=== PATIENT | female | born 1955 | race Asian ===

== ENCOUNTER 2017-12-17 09:30 | Outpatient (CLI) | payer BC ==
[2017-12-17 10:18] LABS: Hemoglobin 14.9 g/dL (12.0-16.0); Mean Corpuscular HGB CONC 33.5 g/dL (32.0-36.0); Mean Corpuscular Hemoglobin 31.2 pg (27.0-31.0); Mean Corpuscular Volume 93.2 fl (81.0-99.0); Mean Platelet Volume 6.2 fL (7.4-10.4); Platelet Count 258 thou/uL (130-400); RBC Distribution Width 11.8 % (11.5-14.5); Red Blood Cell (RBC) Count 4.77 mill/uL (4.20-5.40); White Blood Cell (WBC) Count 4.7 thou/uL (4.8-10.8)
[2017-12-17 10:20] LABS: Prothrombin Time 12.7 SEC (12.0-14.7)
[2017-12-17 10:39] LABS: Anion Gap 12 mmol/L (10-20); BUN (Urea Nitrogen) 18 mg/dL (9.8-20.1); Calc. Creatinine Clearance 0 mL/min (70-130); Calcium 9.8 mg/dL (7.8-10.44); Carbon Dioxide 28 mmol/L (23-31); Chloride 104 mmol/L (98-107); Estimated GFR-MDRD 64; Glucose 101 mg/dL (80-115); Potassium 5.3 mmol/L (3.5-5.1); Sodium 139 mmol/L (136-145)
--- NOTE | 2017-12-17 13:29 | EKG ---
Test Reason : Blood Pressure : / mmHG Vent. Rate : 071 BPM Atrial Rate : 071 BPM P-R Int : 168 ms QRS Dur : 084 ms QT Int : 430 ms P-R-T Axes : 063 059 064 degrees QTc Int : 467 ms Sinus rhythm with Premature supraventricular complexes Otherwise normal ECG Borderline ECG No previous ECGs available Confirmed by BEVERLY KABA ([id number]) on 12/17/2017 1:29:31 PM Referred By: HIEN Confirmed By:BEVERLY KABA
== END 2017-12-17 09:31 | disposition home or self-care (01) ==
LOC: LABBT 09:30
PROVIDERS: ATTEND Internal Medicine Cardiovascular Disease
DX: Z01.818 Encounter for other preprocedural examination (principal); I34.0 Nonrheumatic mitral (valve) insufficiency
CPT/HCPCS: 80048; 85027; 85610; 93005; 93010

== ENCOUNTER 2017-12-19 07:47 | Day surgery (SDC) | payer BC ==
[2017-12-17 09:35] VITALS: BMI 22.3
[2017-12-19] MEDS ORDERED: Ketamine 50 MG/ML VIAL ONE (09:34)
[2017-12-19] MEDS ORDERED: PROPOFOL 200 MG/20 ML VIAL ONE (13:42)
--- NOTE | 2017-12-19 20:13 | ECHO ---
DATE OF SERVICE: 12/19/2017. PREPROCEDURE DIAGNOSIS: Mitral valve prolapse. The patient is a pleasant 62-year-old female who comes to the hospital for a planned transesoph ageal echo to evaluate her level of MR and mitral valve prolapse. The Anesthesiology department provided with sedation for the patient. Please see their notes for det ails. After adequate sedation was achieved, the transesophageal probe was inserted into the mouth and into the esophagus without issues. Multiplanar views were then obtained. Left ventricle appears to be normal size with normal wall thickness. Systolic function is normal wit h EF estimated at 55-60% with no regional wall motion abnormalities. Left atrium is mildly dilated, left atrial appendage is a large single lobe appendage with no mass or thrombus. Right atria is mildly dilated. Right ventricle is normal size with normal systolic function. The aortic valve is structurally normal with three cusps, no stenosis. There mild to moderate aortic valve insufficiency. Aortic root is dilated measured at 3.9 cm at the sinuses. Mitral valve has moderate mitral valve prolapse of the posterior leaflet with moderate to severe amou nt of mitral regurgitant jet with Coanda effect anteriorly directed jet. Tricuspid valve structurally normal. There is mild TR, no stenosis. Pulmonary valve structurally normal. There is no stenosis or regurgitation. Descending thoracic aorta has mild atherosclerotic disease, grade I/V. CONCLUSIONS: 1. Normal systolic function, EF of 55-60%. 2. Left atrial enlargement. 3. Mild TR. 4. Dilated aortic root. Suggest CT angio of the chest for further evaluation of this. 5. Tricuspid aortic valve with mild to moderate aortic valve insufficiency. 6. Mitral valve prolapse of the posterior leaflet is moderate with anteriorly directed jet of MR, wh ich is likely moderate to severe range 7. No evidence of intracardiac shunt by agitated saline study.
== END 2017-12-19 11:29 | disposition home or self-care (01) ==
LOC: CCL 07:47
PROVIDERS: ATTEND Internal Medicine Cardiovascular Disease
DX: I08.1 Rheumatic disorders of both mitral and tricuspid valves (principal); I77.819 Aortic ectasia, unspecified site; Z88.2 Allergy status to sulfonamides; Z79.82 Long term (current) use of aspirin; Z79.899 Other long term (current) drug therapy
CPT/HCPCS: 93312; J2704

== ENCOUNTER 2018-01-23 07:32 | Outpatient (CLI) | payer BC ==
[2018-01-23] MEDS ORDERED: ISOVUE-370 76%-LOCM 1 ML ONE (13:06)
== END 2018-01-23 07:33 | disposition home or self-care (01) ==
LOC: BICCT 07:32
PROVIDERS: ATTEND Internal Medicine Cardiovascular Disease
DX: I71.2 Thoracic aortic aneurysm, without rupture (principal); I34.1 Nonrheumatic mitral (valve) prolapse; I35.1 Nonrheumatic aortic (valve) insufficiency; K44.9 Diaphragmatic hernia without obstruction or gangrene
CPT/HCPCS: 71275; 82565

== ENCOUNTER 2018-02-18 10:50 | Outpatient (CLI) | payer BC | END 2018-02-18 10:51 | disposition home or self-care (01) | LOC: BICMAMMO 10:50 | PROVIDERS: ATTEND Obstetrics & Gynecology | DX: Z12.31 Encounter for screening mammogram for malignant neoplasm of breast (principal) | CPT/HCPCS: 77063; 77067 ==

== ENCOUNTER 2018-11-19 11:06 | Outpatient (CLI) | payer BC ==
--- NOTE | 2018-11-19 11:35 | ULT ---
US Thyroid STANDARD: 11/19/2018 12:00 AM CLINICAL INDICATION: Thyroid nodules. COMPARISON: None. FINDINGS: Right and left thyroid lobes are normal in size and echotexture. The right thyroid lobe measures 4.8 and the left thyroid lobe measures 5.0. A small cyst is seen in the left thyroid lobe. There is a solid nodule measuring 5 mm in greatest dim ension in the right thyroid lobe. This is wider than tall, hypoechoic, and does not contain suspicious calcifications. No cervical lymphadenopathy is noted. IMPRESSION: Tiny right thyroid nodule. TIRADS category 4 Given the small size of the nodule, no further follow-up or biopsy is recommended.
== END 2018-11-19 11:07 | disposition home or self-care (01) ==
LOC: BICULT 11:06
PROVIDERS: ATTEND Internal Medicine Cardiovascular Disease
DX: E04.1 Nontoxic single thyroid nodule (principal)
CPT/HCPCS: 76536

== ENCOUNTER 2018-11-20 10:07 | Day surgery (SDC) | payer BC ==
[2018-11-19 13:35] VITALS: BMI 22.8
[2018-11-20 11:07] LABS: #Eosinphils 0.1 thou/uL (0.0-0.7); #Lymphocytes 1.9 thou/uL (1.20-3.40); #Monocytes 0.4 thou/uL (0.11-0.59); #Neutrophils 2.9 thou/uL (1.40-6.50); %Basophils 0.9 % (0.0-1.0); %Eosinophils 1.6 % (0.0-10.0); %Lymphocytes 36.2 % (21.0-51.0); %Monocytes 6.9 % (0.0-10.0); %Neutrophils 54.4 % (42.0-75.0); Hemoglobin 14.2 g/dL (12.0-16.0); Mean Corpuscular Hemoglobin 31.4 pg (27.0-31.0); Mean Corpuscular Volume 92.3 fL (78.0-98.0); Mean Platelet Volume 6.2 fL (7.4-10.4); Platelet Count 308 thou/uL (130-400); RBC Distribution Width 12.2 % (11.5-14.5); Red Blood Cell (RBC) Count 4.51 mill/uL (4.20-5.40); White Blood Cell (WBC) Count 5.3 thou/uL (4.8-10.8)
[2018-11-20 11:13] LABS: INR-International Normal Ratio 1.9
[2018-11-20 11:14] LABS: PTT 40.8 SEC (22.9-36.1)
[2018-11-20 11:25] LABS: Anion Gap 12 mmol/L (10-20); BUN (Urea Nitrogen) 17 mg/dL (9.8-20.1); Calc. Creatinine Clearance 57 mL/min (70-130); Carbon Dioxide 28 mmol/L (23-31); Chloride 107 mmol/L (98-107); Estimated GFR-MDRD 61; Glucose 91 mg/dL (80-115); Potassium 4.2 mmol/L (3.5-5.1); Sodium 143 mmol/L (136-145)
[2018-11-20] MEDS ORDERED: PROPOFOL 20 ML ONE (11:54)
[2018-11-20] MEDS ORDERED: PROPOFOL 200 MG/20 ML VIAL ONE (16:48)
--- NOTE | 2018-11-21 07:03 | EKG ---
Test Reason : PREOP Blood Pressure : / mmHG Vent. Rate : 056 BPM Atrial Rate : 056 BPM P-R Int : 198 ms QRS Dur : 086 ms QT Int : 452 ms P-R-T Axes : 031 014 037 degrees QTc Int : 436 ms Sinus bradycardia Otherwise normal ECG Confirmed by DR. Sherry CUMMINGS ([id number]) on 11/21/2018 7:03:41 AM Referred By: HIEN Confirmed By:DR. Sherry CUMMINGS
== END 2018-11-20 13:31 | disposition home or self-care (01) ==
LOC: CCL 10:07
PROVIDERS: ATTEND Internal Medicine Cardiovascular Disease
DX: I48.91 Unspecified atrial fibrillation (principal); I34.0 Nonrheumatic mitral (valve) insufficiency; I34.1 Nonrheumatic mitral (valve) prolapse; I10 Essential (primary) hypertension; R00.1 Bradycardia, unspecified; Z88.2 Allergy status to sulfonamides; Z79.01 Long term (current) use of anticoagulants; Z79.82 Long term (current) use of aspirin; Z79.899 Other long term (current) drug therapy
CPT/HCPCS: 80048; 85025; 85610; 85730; 93005; 93010; 93312; J2704

== ENCOUNTER 2018-11-28 10:35 | Outpatient (CLI) | payer BC ==
--- NOTE | 2018-11-28 11:28 | CT ---
CT arteriogram chest with IV contrast and 3-D MIP imaging HISTORY: Mitral regurgitation. COMPARISON: 01/23/2018. FINDINGS: No confluent airspace consolidation, parenchymal mass, mediastinal adenopathy, or pleural f luid. Mild atelectasis at the dependent portion of the lung bases is stable. Bovine origin of the vessels at the aortic arch is again demonstrated. The descending aorta is 4.0 cm reduced AP diameter, stable. Descending thoracic aorta is unremarkable. No pericardial fluid is evident. Mild arterial calcification. Small hiatal hernia. The oval 1.5 cm low-density lesion involving the lateral limb of the left adrena l gland is now better visualized. It appears stable and likely represents an adrenal adenoma. IMPRESSION: The descending thoracic aorta remains upper limits of normal in caliber. Stable CT arteri ogram appearance of the chest.
== END 2018-11-28 10:36 | disposition home or self-care (01) ==
LOC: BICCT 10:35
PROVIDERS: ATTEND Internal Medicine Cardiovascular Disease
DX: I34.0 Nonrheumatic mitral (valve) insufficiency (principal)
CPT/HCPCS: 71275

== ENCOUNTER 2019-02-06 09:30 | Outpatient (CLI) | payer BC ==
--- NOTE | 2019-02-06 09:56 | RAD ---
TWO VIEWS CHEST: Comparison: None. History: Pleural effusion. FINDINGS: Two views of the chest shows a normal sized cardiomediastinal silhouette. The patient is status post sternotomy for cardiac valve repair. There is a small left pleural effusion. IMPRESSION: Small left pleural effusion. POS: [facility]PC
== END 2019-02-06 09:31 | disposition home or self-care (01) ==
LOC: BICRAD 09:30
PROVIDERS: ATTEND Internal Medicine Cardiovascular Disease
DX: J90 Pleural effusion, not elsewhere classified (principal)
CPT/HCPCS: 36415; 71046; 85610

== ENCOUNTER 2020-05-11 08:20 | Outpatient (CLI) | payer BC ==
--- NOTE | 2020-05-11 09:16 | RAD ---
2 view chest: [05/11/2020] Comparison:02/06/2019 HISTORY: Heart surgery one year ago, pleural effusion FINDINGS: Prior examination demonstrated blunting of the costophrenic angle on the left suggesting a small left pleural effusion. No significant pleural fluid is appreciated on this examination. Midline sternotomy wires are present. The patient appears status post multifocal cardiac valvuloplast y. Multiple mediastinal clips are again seen. No pneumothorax or pleural fluid is seen and there is no focal consolidation or alveolar edema. Disconnected epicardial pacing leads are present. IMPRESSION: No focal consolidation or alveolar edema. Stable postoperative changes as detailed above.
== END 2020-05-11 08:21 | disposition home or self-care (01) ==
LOC: BICRAD 08:20
PROVIDERS: ATTEND Internal Medicine Cardiovascular Disease
DX: J90 Pleural effusion, not elsewhere classified (principal); Z98.890 Other specified postprocedural states
CPT/HCPCS: 71046

== ENCOUNTER 2021-01-02 11:23 | Outpatient (CLI) | payer BC ==
[2021-01-02 13:02] LABS: #Eosinphils 0.1 10x3/uL (0.0-0.5); #Monocytes 0.5 10x3/uL (0.0-1.1); #Neutrophils 3.2 10x3/uL (1.5-8.4); %Basophils 0.7 % (0.0-2.0); %Eosinophils 1.4 % (0.0-6.0); %Lymphocytes 30.7 % (18.0-47.0); %Monocytes 8.5 % (0.0-10.0); %Neutrophils 58.3 % (40.0-75.0); Hemoglobin 13.4 g/dL (12.0-15.5); Mean Corpuscular HGB CONC 32.7 g/dL (32.0-36.0); Mean Corpuscular Hemoglobin 30.7 pg (27.0-33.0); Mean Corpuscular Volume 93.8 fl (81.6-98.3); Platelet Count 265 10x3/uL (150-450); RBC Distribution Width 13.6 % (11.5-14.5); Red Blood Cell (RBC) Count 4.37 10x6/uL (3.90-5.03); White Blood Cell (WBC) Count 5.5 10x3/uL (3.5-10.5)
[2021-01-02 15:51] LABS: Anion Gap 14 mmol/L (10-20); BUN (Urea Nitrogen) 19 mg/dL (9.8-20.1); Calc. Creatinine Clearance 0 mL/min (70-130); Calcium 9.8 mg/dL (7.8-10.44); Carbon Dioxide 25 mmol/L (23-31); Chloride 106 mmol/L (98-107); Glucose 94 mg/dL (80-115); Potassium 5.1 mmol/L (3.5-5.1); Sodium 140 mmol/L (136-145)
== END 2021-01-02 11:24 | disposition home or self-care (01) ==
LOC: LABBT 11:23
PROVIDERS: ATTEND Internal Medicine Cardiovascular Disease
DX: Z01.818 Encounter for other preprocedural examination (principal); I35.1 Nonrheumatic aortic (valve) insufficiency
CPT/HCPCS: 80048; 85025; 93005; 93010

== ENCOUNTER 2021-08-17 15:09 | Outpatient (CLI) | payer BC | END 2021-08-17 15:10 | disposition home or self-care (01) | LOC: BICMAMMO 15:09 | PROVIDERS: ATTEND Internal Medicine | DX: Z13.820 Encounter for screening for osteoporosis (principal); Z78.0 Asymptomatic menopausal state; M81.0 Age-related osteoporosis without current pathological fracture; M85.851 Other specified disorders of bone density and structure, right thigh | CPT/HCPCS: 77080 ==

== ENCOUNTER 2022-09-07 08:10 | Outpatient (CLI) | payer MEDICARE, OTHER | END 2022-09-07 08:11 | disposition home or self-care (01) | LOC: BICMAMMO 08:10 | PROVIDERS: ATTEND Internal Medicine | DX: M81.0 Age-related osteoporosis without current pathological fracture (principal); M85.851 Other specified disorders of bone density and structure, right thigh | CPT/HCPCS: 77080 ==

== ENCOUNTER 2022-11-13 14:54 | Outpatient (CLI) | payer MEDICARE, OTHER ==
[~2022-11-13 14:54] MED LIST: Iopamidol 370 76% 100 ML VIAL ONE
== END 2022-11-13 14:55 | disposition home or self-care (01) ==
LOC: BICCT 14:54
PROVIDERS: ATTEND Internal Medicine
DX: I82.412 Acute embolism and thrombosis of left femoral vein (principal); E27.9 Disorder of adrenal gland, unspecified; I48.91 Unspecified atrial fibrillation
CPT/HCPCS: 36415; 71260; 74177; 85610; Q9967

== ENCOUNTER 2023-09-27 08:11 | Outpatient (CLI) | payer MEDICARE, OTHER | END 2023-09-27 08:12 | disposition home or self-care (01) | LOC: BICMAMMO 08:11 | PROVIDERS: ATTEND Internal Medicine | DX: M81.0 Age-related osteoporosis without current pathological fracture (principal) | CPT/HCPCS: 77080 ==